=== PATIENT | female | born 1970 | race Caucasian/White ===

== ENCOUNTER 2022-04-06 11:14 | Outpatient (CLI) | payer BC ==
[2022-04-06] MEDS ORDERED: Iopamidol-370 76% 500 ML 1 ML ONE (12:05)
== END 2022-04-06 11:15 | disposition home or self-care (01) ==
LOC: BICCT 11:14
PROVIDERS: ATTEND Student in an Organized Health Care Education/Training Program
DX: E04.1 Nontoxic single thyroid nodule (principal)
CPT/HCPCS: 70491; Q9967